=== PATIENT | female | born 2005 | race African-American/Black ===

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

== ENCOUNTER 2024-05-10 12:35 | Emergency (ER) | payer OTHER ==
[2024-05-10 13:38] VITALS: BP 106/72; PULSE 83; RESP 17; TEMP 97.3; BMI 19.7
[2024-05-10] MEDS ORDERED: ACETAMINOPHEN 325 MG TABLET (FP) ONE (14:22)
[2024-05-10] MEDS: ACETAMINOPHEN 325 MG TABLET (FP) PO ONE (14:31)
[2024-05-10 14:40] LABS: BASO % 1.1 % (0-2.0); EOS % 0.9 % (0-4.5); LYMPH % 29.2 % (8-40); MCH 31.8 pg (25.7-33.7); MCHC 33.4 g/dl (32.0-36.0); MEAN CELL VOLUME 95.3 fl (80-96); MEAN PLT VOLUME 7.9 fl (7.5-11.1); MONO % 5.6 % (3.8-10.2); NEUT % 63.2 % (42.8-82.8); PLATELET COUNT 296 10^3/uL (134-434); RBC 4.41 M/mm3 (3.60-5.2); RDW 13.4 % (11.6-15.6); WHITE BLOOD COUNT 11.2 K/mm3 (4.0-10.0)
[2024-05-10 16:32] LABS: EPI CELLS >36 /uL (0-25.1); HYALINE CASTS 32 /uL (0-3.1); URINE APPEARANCE CLEAR; URINE BACTERIA 1774 /uL (0-1359); URINE BILIRUBIN NEGATIVE (NEGATIVE); URINE COLOR DK YELLOW; URINE GLUCOSE (UA) NEGATIVE (NEGATIVE); URINE KETONE TRACE (NEGATIVE); URINE LEUK ESTERASE 1+ (NEGATIVE); URINE NITRITE NEGATIVE (NEGATIVE); URINE PROTEIN 2+ (NEGATIVE); URINE WBC 884 /uL (0-25.8)
[2024-05-10 17:29] LABS: URINE RBC 20395.6 /uL (0-23.9)
== END 2024-05-10 16:11 | disposition home or self-care (01) ==
LOC: JER 12:35
DX: O03.9 Complete or unspecified spontaneous abortion without complication (principal)
CPT/HCPCS: 36415; 76817-TC; 81003; 84702; 85025; 86850; 86900; 86901; 87086; 99284-25

== ENCOUNTER 2024-05-31 11:47 | Emergency (ER) | payer OTHER ==
[2024-05-31 11:59] VITALS: BP 99/61; PULSE 80; RESP 18; TEMP 98.7; BMI 20.1
[2024-05-31] MEDS ORDERED: IBUPROFEN 600 MG TABLET (FP) PO ONE (15:38)
[2024-05-31 16:12] LABS: SYPHILIS W/ RPR CONF NON-REACTIVE (NONREACTIVE)
[2024-05-31 16:41] LABS: HIV INTERPRETATION NEGATIVE (NEGATIVE)
== END 2024-05-31 13:55 | disposition home or self-care (01) ==
LOC: JERFT 11:47
DX: A64 Unspecified sexually transmitted disease (principal)
CPT/HCPCS: 36415; 86695; 86696; 86780; 87389; 87491; 87591; 99283-25

== ENCOUNTER 2024-06-20 15:21 | Emergency (ER) | payer OTHER ==
[2024-06-20 15:53] VITALS: BP 99/68; PULSE 70; RESP 19; TEMP 98.2; BMI 21.0
[2024-06-20] MEDS ORDERED: FLUCONAZOLE 150 MG TABLET PO ONE (16:17)
[2024-06-20] MEDS: FLUCONAZOLE 150 MG TABLET PO ONE (16:21)
== END 2024-06-20 16:50 | disposition home or self-care (01) ==
LOC: JERFT 15:21
DX: N89.8 Other specified noninflammatory disorders of vagina (principal); B37.31 Acute candidiasis of vulva and vagina; T36.4X5A Adverse effect of tetracyclines, initial encounter
CPT/HCPCS: 99283-25

== ENCOUNTER 2024-07-29 13:38 | Emergency (ER) | payer OTHER ==
[2024-07-29 14:18] VITALS: BP 115/83; PULSE 75; RESP 16; TEMP 98.7; BMI 20.1
[2024-07-29] MEDS ORDERED: IBUPROFEN 600 MG TABLET (FP) PO ONE (15:54)
== END 2024-07-29 16:23 | disposition home or self-care (01) ==
LOC: JER 13:38
DX: O03.9 Complete or unspecified spontaneous abortion without complication (principal)
CPT/HCPCS: 84703; 99284-25

== ENCOUNTER 2024-10-09 13:39 | Emergency (ER) | payer OTHER ==
[2024-10-09 13:45] VITALS: BP 114/60; PULSE 67; RESP 18; TEMP 97.8; BMI 20.6
[2024-10-09 15:26] LABS: HCG,QUALITATIVE URINE Negative
[2024-10-09 15:27] LABS: EPI CELLS 19 /uL (0-25.1); HYALINE CASTS 0 /uL (0-3.1); URINE APPEARANCE CLEAR; URINE BACTERIA 482 /uL (0-1359); URINE BILIRUBIN NEGATIVE (NEGATIVE); URINE COLOR DK YELLOW; URINE GLUCOSE (UA) NEGATIVE (NEGATIVE); URINE KETONE TRACE (NEGATIVE); URINE LEUK ESTERASE 1+ (NEGATIVE); URINE NITRITE NEGATIVE (NEGATIVE); URINE PROTEIN NEGATIVE (NEGATIVE); URINE RBC 32 /uL (0-23.9); URINE UROBILINOGEN 0.2 mg/dL (0.2-1.0); URINE WBC 11 /uL (0-25.8)
[2024-10-10 00:13] LABS: HIV INTERPRETATION NEGATIVE (NEGATIVE)
== END 2024-10-09 15:40 | disposition home or self-care (01) ==
LOC: JERFT 13:39
DX: N30.00 Acute cystitis without hematuria (principal); J06.9 Acute upper respiratory infection, unspecified; M54.50 Low back pain, unspecified; R10.30 Lower abdominal pain, unspecified; R11.0 Nausea; Z20.822 Contact with and (suspected) exposure to COVID-19
CPT/HCPCS: 0241U-QW; 36415; 81003; 84703; 86803; 87086; 87389; 99283-25

== ENCOUNTER 2024-12-22 23:51 | Emergency (ER) | payer OTHER ==
[2024-12-22 23:57] VITALS: BP 115/75; PULSE 60; RESP 18; TEMP 97.7; BMI 21.4
[2024-12-23] MEDS ORDERED: metroNIDAZOLE 250 MG TABLET ONE (01:39)
[2024-12-23] MEDS: metroNIDAZOLE 250 MG TABLET PO ONE (01:40)
[2024-12-23 01:59] LABS: EPI CELLS >36 /uL (0-25.1); HYALINE CASTS 2 /uL (0-3.1); PH,URINE 6.5 (5.0-8.0); URINE APPEARANCE CLOUDY; URINE BACTERIA 2389 /uL (0-1359); URINE BILIRUBIN NEGATIVE (NEGATIVE); URINE COLOR YELLOW; URINE GLUCOSE (UA) NEGATIVE (NEGATIVE); URINE KETONE TRACE (NEGATIVE); URINE LEUK ESTERASE 1+ (NEGATIVE); URINE NITRITE NEGATIVE (NEGATIVE); URINE PROTEIN TRACE (NEGATIVE); URINE RBC 8 /uL (0-23.9); URINE WBC 97 /uL (0-25.8)
== END 2024-12-23 01:55 | disposition home or self-care (01) ==
LOC: JER 23:51
DX: N89.8 Other specified noninflammatory disorders of vagina (principal); R07.9 Chest pain, unspecified
CPT/HCPCS: 36415; 81003; 84703; 87086; 87491; 87591; 93005; 93010; 99284-25

== ENCOUNTER 2025-01-20 13:32 | Emergency (ER) | payer OTHER ==
[2025-01-20 13:41] VITALS: BP 110/61; PULSE 75; RESP 16; TEMP 98.4; BMI 21.4
[2025-01-20] MEDS ORDERED: KETOROLAC TROMETHAMINE 15 MG/ML VIAL IVPUSH ONE (16:49)
[2025-01-20] MEDS: IBUPROFEN 600 MG TABLET (FP) PO ONE (17:10)
[2025-01-20] MEDS: LIDOCAINE 5% TOPICAL PATCH TP ONE (17:10)
[2025-01-20 17:23] LABS: HIV INTERPRETATION NEGATIVE (NEGATIVE)
[2025-01-20] MEDS ORDERED: IBUPROFEN 600 MG TABLET (FP) PO ONE (17:54)
[2025-01-20] MEDS ORDERED: LIDOCAINE 5% TOPICAL PATCH ONE (17:55)
[2025-01-20 18:40] LABS: EPI CELLS 14 /uL (0-25.1); HYALINE CASTS 1 /uL (0-3.1); PH,URINE 7.5 (5.0-8.0); URINE APPEARANCE CLEAR; URINE BILIRUBIN NEGATIVE (NEGATIVE); URINE COLOR DK YELLOW; URINE GLUCOSE (UA) NEGATIVE (NEGATIVE); URINE KETONE TRACE (NEGATIVE); URINE LEUK ESTERASE NEGATIVE (NEGATIVE); URINE NITRITE POSITIVE (NEGATIVE); URINE PROTEIN NEGATIVE (NEGATIVE); URINE RBC 4 /uL (0-23.9); URINE UROBILINOGEN 0.2 mg/dL (0.2-1.0); URINE WBC 15 /uL (0-25.8)
[2025-01-20] MEDS ORDERED: CEPHALEXIN MONOHYDRATE 500 MG CAPSULE (UD) ONE (18:55)
[2025-01-20] MEDS: CEPHALEXIN MONOHYDRATE 500 MG CAPSULE (UD) PO ONE (19:01)
[2025-01-20 20:47] LABS: URINE BACTERIA 1051.7 /uL (0-1359)
[2025-01-20] MEDS ORDERED: LIDOCAINE PATCH REMOVAL MC SCH (22:00)
== END 2025-01-20 19:00 | disposition home or self-care (01) ==
LOC: JER 13:32
DX: R07.89 Other chest pain (principal); N39.0 Urinary tract infection, site not specified; R10.31 Right lower quadrant pain; R10.2 Pelvic and perineal pain
CPT/HCPCS: 0241U-QW; 36415; 71046-TC-FY; 76830-TC; 81003; 84703; 86803; 87389; 93005; 93010; 99285-25

== ENCOUNTER 2025-03-25 17:45 | Emergency (ER) | payer OTHER ==
[2025-03-25 18:01] VITALS: BP 100/67; PULSE 56; RESP 20; TEMP 98.6; BMI 21.5
[2025-03-25 19:32] LABS: ABSOLUTE IMMATURE GRANULOCYTES 0.02 x10^3/uL (0.0-0.031); BASOPHILS # 0.04 x10^3/uL (0.01-0.08); EOSINOPHIL % 0.9 % (0.7-5.8); EOSINOPHILS # 0.08 x10^3/uL (0.04-0.36); HEMATOCRIT 42.3 % (34.1-44.9); HEMOGLOBIN 13.6 g/dL (11.2-15.7); MCHC 32.2 g/dl (32.2-35.5); MEAN PLT VOLUME 9.8 fl (9.4-12.3); MONOCYTE # 0.58 x10^3/uL (0.24-0.86); MONOCYTE % 6.5 % (4.7-12.5); PLATELET COUNT 286 x10^3/uL (182-369); RDW 11.6 % (12.1-16.5)
[2025-03-25 19:35] LABS: PH,URINE 6.5 (5.0-8.0); URINE APPEARANCE CLEAR; URINE BILIRUBIN NEGATIVE (NEGATIVE); URINE COLOR YELLOW; URINE GLUCOSE (UA) NEGATIVE (NEGATIVE); URINE KETONE TRACE (NEGATIVE); URINE LEUK ESTERASE NEGATIVE (NEGATIVE); URINE NITRITE NEGATIVE (NEGATIVE); URINE PROTEIN NEGATIVE (NEGATIVE)
[2025-03-25 19:38] LABS: HCG,QUALITATIVE URINE Negative
[2025-03-25 19:57] LABS: CALCIUM 9.9 mg/dL (8.5-10.1); POTASSIUM 4.2 mmol/L (3.5-5.1)
[2025-03-25 19:58] LABS: BLOOD UREA NITROGEN 12.2 mg/dL (7-18)
[2025-03-25 20:02] LABS: CREATININE 0.8 mg/dL (0.55-1.3)
[2025-03-25 20:30] LABS: HCV DIAGNOSTIC IN-HOUSE W/RFLX NON-REACTIVE (NONREACTIVE); HIV INTERPRETATION NEGATIVE (NEGATIVE)
== END 2025-03-25 19:07 | disposition home or self-care (01) ==
LOC: JERFT 17:45
DX: R53.83 Other fatigue (principal); J06.9 Acute upper respiratory infection, unspecified; R05.9 Cough, unspecified; M79.10 Myalgia, unspecified site; H92.09 Otalgia, unspecified ear; R09.81 Nasal congestion; R68.83 Chills (without fever); J34.89 Other specified disorders of nose and nasal sinuses; R09.82 Postnasal drip
CPT/HCPCS: 0241U-QW; 36415; 80048; 81003; 84703; 85025; 86803; 87389; 99283-25

== ENCOUNTER 2025-08-18 23:08 | Emergency (ER) | payer OTHER ==
[2025-08-18 23:14] VITALS: BMI 21.9
[2025-08-19] MEDS ORDERED: ACETAMINOPHEN INJECTION 100 ML ONE (00:07)
[2025-08-19] MEDS ORDERED: ONDANSETRON 4 MG/2 ML VIAL ONE (00:08)
[2025-08-19] MEDS: ACETAMINOPHEN 1000 MG/100 ML BAG IVPB ONE (00:26)
[2025-08-19 00:29] LABS: ABSOLUTE IMMATURE GRANULOCYTES 0.04 x10^3/uL (0.0-0.031); BASOPHILS # 0.06 x10^3/uL (0.01-0.08); EOSINOPHIL % 0.2 % (0.7-5.8); EOSINOPHILS # 0.02 x10^3/uL (0.04-0.36); MCHC 34.0 g/dl (32.2-35.5); MEAN CELL VOLUME 93.8 fl (79.4-94.8); MEAN PLT VOLUME 9.8 fl (9.4-12.3); MONOCYTE # 0.55 x10^3/uL (0.24-0.86); MONOCYTE % 4.3 % (4.7-12.5); RDW 11.5 % (12.1-16.5)
[2025-08-19] MEDS: ONDANSETRON 4 MG/2 ML VIAL IVPB ONE (00:30)
[2025-08-19 00:35] LABS: EPI CELLS >36 /uL (0-25.1); HYALINE CASTS 1 /uL (0-3.1); URINE APPEARANCE CLOUDY; URINE BACTERIA 494 /uL (0-1359); URINE BILIRUBIN NEGATIVE (NEGATIVE); URINE COLOR YELLOW; URINE GLUCOSE (UA) NEGATIVE (NEGATIVE); URINE KETONE NEGATIVE (NEGATIVE); URINE LEUK ESTERASE NEGATIVE (NEGATIVE); URINE NITRITE NEGATIVE (NEGATIVE); URINE PROTEIN NEGATIVE (NEGATIVE); URINE RBC 2 /uL (0-23.9); URINE UROBILINOGEN 0.2 mg/dL (0.2-1.0); URINE WBC 53 /uL (0-25.8)
[2025-08-19 00:36] LABS: HCG,QUALITATIVE URINE Negative
[2025-08-19 00:41] LABS: INR 1.15 (0.83-1.09); PROTHROMBIN TIME (PATIENT) 12.5 SEC (9.7-13.0)
[2025-08-19 00:43] LABS: ACTIVATED PTT 31.7 SECONDS (25.2-36.5)
[2025-08-19 01:03] LABS: GLUCOSE,RANDOM 100 mg/dL (74-106); TOT PROT 7.4 g/dl (6.4-8.2)
[2025-08-19 01:04] LABS: CO2 24 mmol/L (21-32)
[2025-08-19 01:06] LABS: ALK PHOS 56 U/L (40-150)
[2025-08-19 01:08] LABS: SGPT/ALT 17 U/L (0-55)
[2025-08-19 01:09] LABS: CREATININE 0.79 mg/dL (0.55-1.3); SGOT/AST 29 U/L (5-34)
[2025-08-19 01:28] LABS: HCV DIAGNOSTIC IN-HOUSE W/RFLX NON-REACTIVE (NONREACTIVE); HIV INTERPRETATION NEGATIVE (NEGATIVE)
[2025-08-19 01:41] VITALS: BP 92/56; PULSE 56; RESP 14; TEMP 97.6
[2025-08-19 07:59] LABS: URINE CRYSTALS SEEN /hpf
== END 2025-08-19 02:01 | disposition home or self-care (01) ==
LOC: JER 23:08
PROC: 3E033NZ Introduction of Analgesics, Hypnotics, Sedatives into Peripheral Vein, Percutaneous Approach (ICD-10-PCS; principal; 2025-08-19)
PROC: 3E033GC Introduction of Other Therapeutic Substance into Peripheral Vein, Percutaneous Approach (ICD-10-PCS; 2025-08-19)
DX: R10.30 Lower abdominal pain, unspecified (principal); R11.0 Nausea
CPT/HCPCS: 36415; 76830-TC; 80053; 81003; 84702; 84703; 85025; 85610; 85730; 86803; 86850; 86900; 86901; 87086; 87389; 99285-25